=== PATIENT | female | born 1990 | race Caucasian/White ===

== ENCOUNTER 2023-09-13 03:51 | Inpatient (IN) | payer BC, OTHER ==
[2023-09-13] MEDS ORDERED: OXYTOCIN 10 UNIT/ML 1 ML VIAL IM PRN ×2 (05:33→19:39)
[2023-09-13] MEDS ORDERED: METHYLERGONOVINE 0.2 MG/ML 1 ML AMP IM PRN ×2 (05:33→19:39)
[2023-09-13] MEDS ORDERED: LIDOCAINE 0.5% (PF) 5 MG/ML (50 ML SDV) SQ PRN (05:33)
[2023-09-13] MEDS ORDERED: TERBUTALINE 1 MG/ML VIAL SQ PRN (05:33)
[2023-09-13] MEDS ORDERED: miSOPROStoL 200 MCG TAB PO PRN ×2 (05:33→19:39)
[2023-09-13] MEDS ORDERED: TRANEXAMIC 1,000 MG/100ML-NACL 1,000 MG in EMPTY BAG 1 BAG IV PRN ×2 (05:33→19:39)
[2023-09-13] MEDS ORDERED: CARBOPROST TROMETHAMINE 250 MCG/ML 1 ML AMP IM PRN (05:33)
--- NOTE | 2023-09-13 05:39 | US ---
EXAM: US , Limited CLINICAL HISTORY: ITS.REASON US Reason: unable to get heart tones Decreased movement 8 hours. 42 weeks 4 days, EDC 08/26/2023 TECHNIQUE: Real-time limited ultrasound of the maternal uterus with image documentation. COMPARISON: No relevant prior studies available. FINDINGS: Fetus: Single IUP. No cardiac activity. No movement. Position: Vertex presentation. Placenta: Anterior placenta. No previa. IMPRESSION: Single IUP. No cardiac activity. No movement. Likely represents intrauterine . <MYCVCSECTION> Communications: 09/13/23 05:48 Verify Receipt Verified receipt with Dr. Naik on 09/12 05:48 (-05:00)
--- NOTE | 2023-09-13 05:44 | P.HPOB ---
History of Present Illness H&P Date: 09/13/23 Chief Complaint: 42-3/7 weeks, intrauterine demise, no care The patient is a 32-year-old 1 para 0 admitted at 42-3/7 weeks as determined by last menstrual period dating. She presents to labor and delivery having had no movement since approximately 9:00 last night. She has had no official care and has been managed by a nba player throughout her . The patient declines to answer questions regarding any laboratory workup that may have been done during the . Bedside ultrasound confirms note heart tones. The patient denies rupture of membranes as does the leg sand slinger but there is evidence of meconium in the vagina. Her has reportedly been otherwise uncomplicated. It is unclear whether any testing has been done. She does report having regular contractions roughly every 7 to 9 minutes apart beginning last evening. Obstetrical history: 1 para 0 with current statistics listed in history of present illness. EDC is reportedly 08/26/2023 established by last menstrual period. There is no evidence of any sonographic confirmation or evaluation of anatomy. No labs are available. Gynecologic history: Reportedly unremarkable with no history of any infections to include STDs. Review of Systems Review of systems is confined to history of present illness. Past Medical History History of Any Multi-Drug Resistant Organisms: None Reported Smoking Status: Never smoker Medications and Allergies Home Medications Medication Instructions Recorded Confirmed Type Vit No.179/Iron/Folic 1 each PO DAILY 09/13/23 09/13/23 History [ Tablet] Allergies Allergy/AdvReac Type Severity Reaction Status Date / Time No Known Allergies Allergy Verified 09/13/23 03:52 Exam Intake and Output 09/12/23 09/12/23 09/13/23 14:59 22:59 06:59 Other: Weight 99.79 kg In general, this is a well-developed, mildly obese white female in emotional distress but no physical distress. Her heart has a regular rhythm and rate without murmur. Her lungs are clear to auscultation bilaterally in all shabazz. Her abdomen is gravid, nondistended, has normal active bowel sounds, soft, nontender, without any palpable masses aside from the uterine fundus. Her extremities are without any cyanosis, clubbing, or edema and are nontender to palpation bilaterally. Digital cervical examination demonstrates her cervix to be 2 cm dilated, approximately 70% effaced, with the vertex and presentation at -2-3 station. Artificial rupture of membranes is carried out demonstrating very thick meconium stained fluid. Assessment and Plan (1) 42 or more weeks gestation of Current Visit: Yes Status: Acute Code(s): PLN2222 - SNOMED Code(s): 217418130 (2) demise Current Visit: Yes Status: Acute Code(s): YHY0699 - SNOMED Code(s): 696005267 Plan: The patient is admitted for active management of labor. I have discussed with s he and her the findings and the plan going forward. Etiology of demise is unclear and may remain unclear even after . She has been admitted for Pitocin augmentation. She is a good candidate for what ever type of analgesia she may choose to include epidural, IV, OB nitrous, or even OIL TREATER. labs will be drawn and full evaluation carried out after delivery to include likely cultures from the placenta.
[2023-09-13] MEDS ORDERED: OXYTOCIN 30 UNITS/500 ML NS 30 UNIT in SALINE 1 500ML.BAG IV SCH (05:45)
[2023-09-13] MEDS: ACETAMINOPHEN TAB 500 MG TAB PO STA (06:13)
[2023-09-13] MEDS: LACTATED RINGERS 1,000 ML IV SCH (06:14)
[2023-09-13] MEDS: OXYTOCIN 30 UNITS/500 ML NS 30 UNIT in SALINE 1 500ML.BAG IV SCH (06:17)
[2023-09-13 08:18] LABS: Basophils % (A) 0 %; Eosinophils % (A) 0 %; HCT 35.6 % (34.0-46.0); HGB 12.1 gm/dL (11.4-16.0); Lymphocytes # (A) 1.2 k/uL (1.0-4.8); Lymphocytes % (A) 10 %; MCH 30.8 pg (25.0-35.0); MCHC 33.9 g/dL (31.0-37.0); MCV 91.1 fL (80.0-100.0); Mean Platelet Volume 7.6; Monocytes # (A) 0.6 k/uL (0-1.0); Monocytes % (A) 5 %; Neutrophils # (A) 10.1 k/uL (1.3-7.7); Neutrophils % (A) 84 %; Platelet Count 180 k/uL (150-450); RBC 3.91 m/uL (3.80-5.40); RDW 14.5 % (11.5-15.5); WBC 12.1 k/uL (3.8-10.6)
[2023-09-13] MEDS: NALBUPHINE 10 MG/ML (10 ML MDV) IV PRN (10:37)
[2023-09-13] MEDS ORDERED: fentaNYL (PF) 50 MCG/ML 5 ML AMP ONE (11:35)
[2023-09-13] MEDS ORDERED: ROPIVACAINE 5 MG/ML 30 ML VIAL ONE (11:35)
[2023-09-13] MEDS ORDERED: SODIUM CHLORIDE 0.9% 250 ML BAG ONE (11:35)
[2023-09-13] MEDS: ACETAMINOPHEN TAB 500 MG TAB PO PRN (14:37)
[2023-09-13] MEDS: CITRIC ACID-SODIUM CITRATE 15 ML CUP PO ONE (19:43)
[2023-09-13] MEDS ORDERED: OXYTOCIN 30 UNITS/500 ML NS BAG IV ONE (19:55)
[2023-09-13] MEDS ORDERED: ONDANSETRON 4 MG/2 ML VIAL ONE (19:55)
[2023-09-13] MEDS ORDERED: METHYLERGONOVINE 0.2 MG/ML 1 ML AMP ONE (19:55)
[2023-09-13] MEDS ORDERED: MORPHINE SULFATE (PF) 0.3 MG/0.3 ML SYR ONE (19:55)
[2023-09-13] MEDS ORDERED: METOCLOPRAMIDE 5 MG/ML 2 ML VIAL IVP PRN (21:10)
[2023-09-13] MEDS ORDERED: diphenhydrAMINE 50 MG/ML 1 ML VIAL IVP PRN ×2 (21:10)
[2023-09-13] MEDS ORDERED: ZOLPIDEM 5 MG TAB PO PRN (21:10)
[2023-09-13] MEDS ORDERED: diphenhydrAMINE 25 MG CAP PO PRN (21:10)
[2023-09-13] MEDS ORDERED: NALOXONE 0.4 MG/ML 1 ML VIAL IV PRN (21:10)
--- NOTE | 2023-09-13 21:26 | P.OP ---
Date of Procedure: 09/13/23 Preoperative Diagnosis: 42 weeks 4 days gestation Intrauterine demise Maternal request for section Arrest of active phase of labor Meconium-stained fluid No care Postoperative Diagnosis: Name Procedure(s) Performed: Primary low transverse section Anesthesia: spinal Surgeon: Francine Lopez Stripper Cutter Machine #1: Justine Miller Estimated Blood Loss (ml): 400 IV fluids (ml): 1,000 Urine output (ml): 50 Pathology: other (Placenta) Condition: stable Disposition: floor Indications for Procedure: This is a 32-year-old 1 woman who presented stating she was 42 weeks and 4 days complaining of decreased movement. She has received some care with a nurse fitter and turner and reports having an uncomplicated . She presented upon initial evaluation no heart tones were detected and intrauterine demise was confirmed by bedside ultrasound. Upon admission to labor and delivery she was 2 cm dilated and artificial rupture of membranes is undertaken and copious meconium-stained fluid was noted. She was started on Pitocin induction of labor and did receive an epidural anesthetic. She was approximate 5 cm at noon and did progress to 9 cm x 4 p.m. She commenced pushing when she reached complete cervical dilation however had minimal descent of the vertex and significant abdominal pain. At that time the infant's vertex was at the -2 station however there was significant distortion and overlapping of the skull bones and no tone behind contractions. The patient herself was uncomfortable despite bolus of the epidural. Her contraction pattern was adequate. She had no evidence of fever. After discussion of the situation with the patient requested a primary section. She stated she was too uncomfortable and distraught to continue with the labor. I counseled her on the risks of the procedure which include bleeding, infection, transfusion, maternal injury and implications for future pregnancies. The alternatives were to continue with Pitocin and maternal effort with contractions. Vertex and is into a high station for assisted delivery. Request for section was undertaken and the anesthesiologist were n otified. Operative Findings: Male in the occiput transverse position weighing 3880 g. There was thick foul meconium-stained fluid and extensive sloughing of the skin as well as discoloration of the face and head consistent with demise for some time. The decidua and placenta were thickly meconium-stained. The uterus otherwise appeared normal with normal-appearing fallopian tubes and bilateral ovaries. Description of Procedure: After the patient was counseled extensively along with her consent was obtained for primary section. She was taken to the operating room where her epidural anesthetic was removed and a spinal anesthetic was then administered without incident. She was positioned prepped and draped in the dorsal supine position with a Cruz catheter in place. After anesthetic was confirmed adequate a low transverse skin incision was made and carried down to the underlying fascia sharply. The fascia was incised in the midline and extended bilaterally with the Matias scissors. The inferior aspect of the superior aspect of the fascial incision were elevated and the underlying rectus muscles dissected off sharply. The rectus muscles were in the midline and the peritoneum was tented up and entered sharply. The presence peritoneal incision was then extended inferiorly and superiorly with excellent visualization the bladder. The bladder blade was placed. The vesicouterine peritoneum was identified, tented up and entered sharply. The bladder blade was placed after the bladder flap was created. A low transverse uterine incision was then made. Thick particulate meconium-stained fluid was encountered. The uterine incision was extended bilaterally. The infant's head was delivered out of the incision followed by the anterior and posterior shoulders. The rest of the infant was delivered onto the field. The cord was clamped and cut and the infant was taken to the warmer. An intact, three-vessel cord with thick meconium staining and calcifications was removed from the uterus. The uterus was exteriorized and cleared of all clot and debris. Uterus was moderately atonic and this was treated with Pitocin. The uterine incision was then closed in a running locked fashion with 0 Vicryl suture followed by second imbricating layer of the same. The uterus was then returned to the abdomen and the incision was reinspected. She did receive Methergine as well for atony which did resolve. Surgical's no was placed over the incision line. The bladder flap, peritoneal edges and fascial edges were inspected and noted to be hemostatic. The fascia was then closed with 0 Vicryl suture. The subcu testicular tissue was copiously suction irrigated and reapproximated with 3-0 chromic. The skin was then closed with 4-0 Vicryl in a subcutaneous fashion. All counts reported to me as correct by the operating room staff and the patient was transported to recovery area in good condition.
[2023-09-13] MEDS: ACETAMINOPHEN IV (For NPO) 1,000 MG in EMPTY BAG 1 BAG IVPB SCH (23:48)
[2023-09-14] MEDS: LACTATED RINGERS 1,000 ML IV SCH (02:50)
[2023-09-14] MEDS: IBUPROFEN IV 800 MG in SODIUM CHLORIDE 0.9% 250 ML IV SCH (03:04)
[2023-09-14] MEDS: ONDANSETRON 4 MG/2 ML VIAL IVP PRN (06:14)
[2023-09-14 06:42] LABS: Basophils % (A) 0 %; Eosinophils % (A) 0 %; HCT 33.2 % (34.0-46.0); HGB 11.2 gm/dL (11.4-16.0); Lymphocytes # (A) 1.5 k/uL (1.0-4.8); Lymphocytes % (A) 12 %; MCHC 33.9 g/dL (31.0-37.0); MCV 91.5 fL (80.0-100.0); Mean Platelet Volume 7.8; Monocytes # (A) 0.6 k/uL (0-1.0); Monocytes % (A) 5 %; Neutrophils # (A) 10.6 k/uL (1.3-7.7); Neutrophils % (A) 82 %; Platelet Count 211 k/uL (150-450); RBC 3.62 m/uL (3.80-5.40); RDW 14.7 % (11.5-15.5); WBC 12.9 k/uL (3.8-10.6)
[2023-09-14] MEDS: IBUPROFEN 600 MG TAB PO SCH (07:36)
--- NOTE | 2023-09-14 09:03 | P.PNOBGPC ---
Subjective - Subjective Interval history: The patient appears to be grieving appropriately. Patient reports: Reports appetite normal, Reports voiding normally, Reports pain well controlled, Reports ambulating normally [place]: Objective - Vital Signs Latest vital signs: Vital Signs Temp Pulse Resp BP Pulse Ox 09/14/23 07:55 97.6 F 76 16 100/66 97 09/14/23 03:00 98.3 F 75 16 98/58 96 09/13/23 22:51 100 16 125/72 96 09/13/23 22:36 97.8 F 99 16 124/88 100 09/13/23 22:21 85 16 117/67 99 09/13/23 22:06 98 16 115/76 98 09/13/23 21:51 84 16 114/69 98 09/13/23 21:36 88 16 122/68 96 09/13/23 21:21 97.1 F L 105 H 16 103/57 95 09/13/23 21:06 90 16 96/54 97 09/13/23 20:51 96 16 91/54 94 L Intake and Output 09/13/23 09/14/23 09/14/23 22:59 06:59 14:59 Intake Total 196.367 Output Total 1457 800 Balance -1260.633 -800 Intake: Intake, IV Titration 196.367 Amount Oxytocin 30 Units/500 ml 196.367 Ns 30 unit In Saline 1 500ml.bag @ Per Protocol IV .Q0M [facility] Rx#:[id number] Output: Urine 900 800 Estimated Blood Loss 400 Output, Quantitative 157 Blood Loss Other: Voiding Method Indwelling Catheter Indwelling Catheter # Voids 1 - Exam Extremities: Present: normal Abdomen: Present: normal appearance, soft. Absent: distention, tenderness Incision: Present: normal, dry, intact Uterus: Present: normal, firm (Uterine fundus is tonic and appropriately tender just below the umbilicus.) - Labs Labs: Abnormal Lab Results - Last 24 Hours (Table) 09/14/23 Range/Units 06:18 WBC 12.9 H (3.8-10.6) k/uL RBC 3.62 L (3.80-5.40) m/uL Hgb 11.2 L (11.4-16.0) gm/dL Hct 33.2 L (34.0-46.0) % Neutrophils # 10.6 H (1.3-7.7) k/uL Assessment and Plan (1) 42 or more weeks gestation of Current Visit: Yes Status: Acute Code(s): [id number] - SNOMED Code(s): 749435580 (2) demise Current Visit: Yes Status: Acute Code(s): [id number] - SNOMED Code(s): 981537690 (3) Status post section Current Visit: Yes Status: Acute Code(s): Z98.891 - HISTORY OF UTERINE SCAR FROM PREVIOUS SURGERY SNOMED Code(s): 072364522 Plan: Continue routine and postoperative care. I have strongly encouraged the patient to ambulate in the hallways routinely. I had a long discussion with the patient regarding possible causes which primarily included cord accident or uteroplacental insufficiency. She does appear to be grieving appropriately at this time and is accepting of the situation at this time as opposed to her demeanor yesterday. Will continue to offer what ever support we can and would anticipate discharge home tomorrow pending no complications.
[2023-09-14] MEDS: SENNOSIDES-DOCUSATE SODIUM 1 EACH TAB PO SCH (09:04)
--- NOTE | 2023-09-14 10:28 | P.PN ---
Progress Note - Text Progress Note Date: 09/14/23 Postop day 1 from under spinal anesthesia with intrathecal morphine given for postop pain management. Patient is doing well. Pain is well controlled. On visual analog scale 3/10 Mild itching present No nausea or vomiting reported. No Headache or weakness and numbness in the legs. No complications from spinal anesthesia.
[2023-09-14] MEDS: diphenhydrAMINE 50 MG CAP PO PRN (11:06)
[2023-09-14 17:31] VITALS: BP 98/54; PULSE 93; RESP 18; TEMP 97.8
--- NOTE | 2023-09-15 08:58 | P.DS ---
Providers Date of admission: 09/13/23 05:27 Expected date of discharge: 09/15/23 Attending physician: Gerald Canela Primary care physician: Stated None - Discharge Diagnosis(es) (1) 42 or more weeks gestation of Current Visit: Yes Status: Acute (2) demise Current Visit: Yes Status: Acute (3) Status post section Current Visit: Yes Status: Acute Hospital Course: The patient is a 32-year-old 1 para 0 admitted at 42-3/7 weeks by last menstrual period dating. She is admitted to labor and delivery with no formal care under the care of Stuart stabilizing machine operator secondary to having had no movement for a number of hours and an inability to get heart tones at home. On labor and delivery, she was confirmed to have an intrauterine demise and induction was undertaken. She had rupture of membranes for thickly meconium stained fluid and progressed throughout the day to complete. She pushed for some time and was unable to bring the station lower than -2. After a discussion with the patient, the patient requested primary low-transverse section. She was taken to the operating room where she was delivered of a nonviable 8 pound 9 ounce baby boy. The procedure itself was uncomplicated. Her course was unremarkable from a medical perspective and the patient was grieving appropriately throughout. Her vital signs were stable throughout. She was deemed stable for discharge on postoperative day #2 and was discharged home to follow-up in the office in 2 weeks for an incision check in 6 weeks routinely. Discharge instructions included calling for any significantly increased bleeding or foul-smelling lochia, significantly increased fever or abdominal pain, perineal complaints, breast complaints, incisional complaints, or anything else that concerned her. She was additionally instructed to call for any significant problems with depression. She was instructed to do no heavy lifting over 6 weeks as well as to abstain from anything in the vagina for at least 6 weeks time to include intercourse. She was lastly instructed to do no driving until off of all pain medications or 2 weeks time, whichever came first. She understood her instructions and agrees to follow-up as noted above. Discharge medications included [id number] analgesic pain medications as well as a prescription for Tylenol 3, 1-2 p.o. every 6 hours as needed pain, #20 dispensed with no refills. Maternal blood type is O+ and rubella status is immune. Discharge hemoglobin and hematocrit were 11.2 and 33.2 respectively. Procedures: #1. Artificial rupture of membranes #2. Pitocin augmentation #3. Epidural analgesia #4. Primary low-transverse section Patient Condition at Discharge: Stable Plan - Discharge Summary New Discharge Prescriptions: No Action Vit No.179/Iron/Folic [ Tablet] 1 each PO DAILY Discharge Medication List Vit No.179/Iron/Folic [ Tablet] 1 each PO DAILY 09/13/23 [History] Follow up Appointment(s)/Referral(s): Gerald Canela MD [STAFF PHYSICIAN] - 2 Weeks Discharge Disposition: HOME SELF-CARE
== END 2023-09-15 11:00 | disposition home or self-care (01) | DRG 787 ==
LOC: FBPOP 03:51 → 4FBP 05:27
PROVIDERS: ADMIT Obstetrics & Gynecology; ATTEND Obstetrics & Gynecology
PROC: 10907ZC Drainage of Amniotic Fluid, Therapeutic from Products of Conception, Via Natural or Artificial Opening (ICD-10-PCS; 2023-09-13)
PROC: 3E033VJ Introduction of Other Hormone into Peripheral Vein, Percutaneous Approach (ICD-10-PCS; 2023-09-13)
PROC: 10D00Z1 Extraction of Products of Conception, Low, Open Approach (ICD-10-PCS; principal; 2023-09-13 19:55)
DX: O48.1 Prolonged pregnancy (principal); O36.4XX0 Maternal care for intrauterine death, not applicable or unspecified; O62.1 Secondary uterine inertia; O77.0 Labor and delivery complicated by meconium in amniotic fluid; Z37.1 Single stillbirth; Z3A.42 42 weeks gestation of pregnancy
CPT/HCPCS: 76815; 85025; 86850; 86900; 86901; 99213